=== PATIENT | male | born 1995 | race Caucasian/White ===

== ENCOUNTER 2017-02-08 20:59 | Emergency (ER) | payer OTHER ==
[2017-02-08 21:10] VITALS: TEMP 97.9
[2017-02-08] MEDS ORDERED: IBUPROFEN 600 MG TAB PO ONE (21:12)
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
[2017-02-09 00:34] VITALS: BP 144/67; PULSE 64; RESP 18; O2SAT 95
== END 2017-02-09 00:34 | disposition home or self-care (01) ==
DX: S99.921A Unspecified injury of right foot, initial encounter (principal); Z87.891 Personal history of nicotine dependence; V09.00XA Pedestrian injured in nontraffic accident involving unspecified motor vehicles, initial encounter; Y92.410 Unspecified street and highway as the place of occurrence of the external cause; Y99.8 Other external cause status; Y93.01 Activity, walking, marching and hiking